=== PATIENT | male | born 1940 | race Caucasian/White ===

== ENCOUNTER → 2016-07-04 | Outpatient (CLI) | payer MEDICARE, BC | LOC: LAB 08:45 | DX: I10 Essential (primary) hypertension (principal); Z12.5 Encounter for screening for malignant neoplasm of prostate; E78.2 Mixed hyperlipidemia ==

== ENCOUNTER → 2017-02-08 | Outpatient (CLI) | payer MEDICARE, BC ==
[~2017-02-08] VITALS: Ht 170.2 cm; Wt 91.4 kg
[~2017-02-08] MED LIST: LOSARTAN POTASS1 TA2 PO; OMEPRAZOLE40 MG PO
[2017-02-08 10:50] VITALS: BP 151/75
== END ==
LOC: AMSURD 10:45
DX: R00.1 Bradycardia, unspecified (principal)

== ENCOUNTER → 2017-02-13 | Outpatient (CLI) | payer MEDICARE, BC ==
[2017-02-08 10:50] VITALS: BP 151/75
== END ==
LOC: VAS 17:26
DX: Z02.89 Encounter for other administrative examinations (principal)

== ENCOUNTER → 2017-02-28 | Outpatient (CLI) | payer MEDICARE, BC ==
[2017-02-08 10:50] VITALS: BP 151/75
[2017-02-28 14:13] LABS: BUN/CREATININE RATIO 20.3 (6.0-26.0); CALCIUM 9.7 mg/dL (8.4-10.2); POTASSIUM 4.4 mmol/L (3.6-5.0); TOTAL BILIRUBIN 0.6 mg/dL (0.2-1.3); TOTAL PROTEIN 6.9 g/dL (6.3-8.2)
[2017-02-28 14:25] LABS: BASO # 0.1 (0.02-0.10); EOS # 0.2 (0.04-0.40); EOS % 2.9 % (0.0-4.0); HEMATOCRIT 46.1 % (42.0-52.0); HEMOGLOBIN 15.9 g/dL (13.5-18.0); LYMPH# 1.6 (1.50-4.00); MEAN CELL VOLUME 84 fl (78-100); MEAN CORPUSCULAR HEMOGLOBIN 29 pg (27-31); MEAN CORPUSCULAR HGB CONC 35 g/dL (33-37); MEAN PLATELET VOLUME 11.1 fl (7.4-10.4); MONO # 0.9 (0.20-0.80); NEU # 4.6 (1.40-6.50); PLATELET COUNT 224 K/mm3 (130-400); RED BLOOD COUNT 5.49 M/mm3 (4.20-5.60); WHITE BLOOD COUNT 7.3 K/mm3 (4.8-10.8)
[2017-02-28 15:31] LABS: ERYTHROCYTE SEDIMENTATION RATE 4 mm/hr (0-20)
== END ==
LOC: LAB 13:40
PROVIDERS: Internal Medicine
DX: R00.1 Bradycardia, unspecified (principal); R06.00 Dyspnea, unspecified

== ENCOUNTER → 2017-03-03 | Outpatient (CLI) | payer MEDICARE, BC ==
[2017-02-08 10:50] VITALS: BP 151/75
== END ==
LOC: PT 02-17 11:36 → CARDREHAB 09:01
DX: R00.1 Bradycardia, unspecified (principal); R06.02 Shortness of breath; R00.0 Tachycardia, unspecified
CPT/HCPCS: A9500

== ENCOUNTER 2017-08-30 08:30 | Outpatient (RCR) | payer MEDICARE, BC ==
[2017-02-08 10:50] VITALS: BP 151/75
== END 2017-08-30 09:00 | disposition home or self-care (01) ==
LOC: PT 08:30
DX: M50.323 Other cervical disc degeneration at C6-C7 level (principal)
CPT/HCPCS: G8978-GP; G8979-GP

== ENCOUNTER → 2017-09-18 | Outpatient (CLI) | payer MEDICARE, BC ==
[2017-02-08 10:50] VITALS: BP 151/75
[2017-09-18 09:29] LABS: EOS # 0.1 (0.04-0.40); EOS % 2.2 % (0.0-4.0); HEMOGLOBIN 15.8 g/dL (13.5-18.0); MEAN CELL VOLUME 84 fl (78-100); MEAN CORPUSCULAR HEMOGLOBIN 29 pg (27-31); MEAN CORPUSCULAR HGB CONC 34 g/dL (33-37); MEAN PLATELET VOLUME 10.4 fl (7.4-10.4); MONO # 0.7 (0.20-0.80); PLATELET COUNT 215 K/mm3 (130-400); RED CELL DISTRIBUTION WIDTH 13.7 % (11.5-14.5); WHITE BLOOD COUNT 5.9 K/mm3 (4.8-10.8)
[2017-09-18 09:46] LABS: ALBUMIN 3.9 g/dL (3.5-5.0); BUN/CREATININE RATIO 22.7 (6.0-26.0); CALCIUM 9.3 mg/dL (8.4-10.2); POTASSIUM 4.2 mmol/L (3.6-5.0); TOTAL BILIRUBIN 0.5 mg/dL (0.2-1.3); TOTAL PROTEIN 6.9 g/dL (6.3-8.2)
[2017-09-18 10:58] LABS: ERYTHROCYTE SEDIMENTATION RATE 1 mm/hr (0-20)
== END ==
LOC: LAB 09:14
PROVIDERS: Internal Medicine
DX: R00.1 Bradycardia, unspecified (principal); R06.00 Dyspnea, unspecified

== ENCOUNTER → 2017-09-20 | Outpatient (CLI) | payer MEDICARE, BC ==
[2017-02-08 10:50] VITALS: BP 151/75
== END | disposition home or self-care (01) ==
LOC: CARDREHAB 11:46
DX: G47.33 Obstructive sleep apnea (adult) (pediatric) (principal); R06.83 Snoring; R09.02 Hypoxemia; Z68.32 Body mass index [BMI] 32.0-32.9, adult
CPT/HCPCS: G0399

== ENCOUNTER → 2018-01-08 | Outpatient (CLI) | payer MEDICARE, BC ==
[2017-02-08 10:50] VITALS: BP 151/75
[2018-01-08 10:17] LABS: PROTHROMBIN TIME 14.3 SECONDS (9.0-12.0)
== END ==
LOC: LAB 08:25
PROVIDERS: Internal Medicine Clinical Cardiac Electrophysiology
DX: Z79.01 Long term (current) use of anticoagulants (principal)

== ENCOUNTER → 2018-01-11 | Outpatient (CLI) | payer MEDICARE, BC ==
[2017-02-08 10:50] VITALS: BP 151/75
[2018-01-11 10:11] LABS: PROTHROMBIN TIME 23.4 SECONDS (9.0-12.0)
== END ==
LOC: LAB 09:20
PROVIDERS: Internal Medicine Clinical Cardiac Electrophysiology
DX: Z79.01 Long term (current) use of anticoagulants (principal)

== ENCOUNTER → 2018-01-18 | Outpatient (CLI) | payer MEDICARE, BC ==
[~2018-01-18] VITALS: Ht 167.6 cm; Wt 90.9 kg
[~2018-01-18] MED LIST changes: +D3-5000 90 MG-51 TAB PO; +JANTOVEN5 MG PO; +NATURE'S BLEND50 MCG PO
[2018-01-18 10:43] LABS: EOS # 0.2 (0.04-0.40); EOS % 1.4 % (0.0-4.0); HEMATOCRIT 47.7 % (42.0-52.0); HEMOGLOBIN 16.4 g/dL (13.5-18.0); LYMPH# 1.9 (1.50-4.00); MEAN CELL VOLUME 84 fl (78-100); MEAN CORPUSCULAR HEMOGLOBIN 29 pg (27-31); MEAN CORPUSCULAR HGB CONC 34 g/dL (33-37); MEAN PLATELET VOLUME 10.2 fl (7.4-10.4); MONO # 1.3 (0.20-0.80); NEU # 7.8 (1.40-6.50); PLATELET COUNT 233 K/mm3 (130-400); RED BLOOD COUNT 5.71 M/mm3 (4.20-5.60); WHITE BLOOD COUNT 11.4 K/mm3 (4.8-10.8)
[2018-01-18 10:47] LABS: PROTHROMBIN TIME 26.4 SECONDS (9.0-12.0)
[2018-01-18 10:52] VITALS: BP 144/87
[2018-01-18 10:52] LABS: ALBUMIN 3.9 g/dL (3.5-5.0); CALCIUM 9.5 mg/dL (8.4-10.2); POTASSIUM 3.9 mmol/L (3.6-5.0); TOTAL BILIRUBIN 0.6 mg/dL (0.2-1.3); TOTAL PROTEIN 6.7 g/dL (6.3-8.2)
== END ==
LOC: AMSURD 10:15
PROVIDERS: Internal Medicine
DX: Z01.818 Encounter for other preprocedural examination (principal); N40.0 Benign prostatic hyperplasia without lower urinary tract symptoms; Z95.0 Presence of cardiac pacemaker

== ENCOUNTER → 2018-01-25 | Outpatient (CLI) | payer MEDICARE, BC ==
[2018-01-18 10:52] VITALS: BP 144/87
[2018-01-25 10:56] LABS: PROTHROMBIN TIME 19.6 SECONDS (9.0-12.0)
== END ==
LOC: LAB 09:15
PROVIDERS: Internal Medicine Clinical Cardiac Electrophysiology
DX: Z79.01 Long term (current) use of anticoagulants (principal)

== ENCOUNTER → 2018-02-01 | Outpatient (CLI) | payer MEDICARE, BC ==
[2018-01-18 10:52] VITALS: BP 144/87
[2018-02-01 09:30] LABS: PROTHROMBIN TIME 24.3 SECONDS (9.0-12.0)
== END ==
LOC: LAB 08:00
PROVIDERS: Internal Medicine Clinical Cardiac Electrophysiology
DX: Z79.01 Long term (current) use of anticoagulants (principal)

== ENCOUNTER → 2018-04-02 | Outpatient (CLI) | payer MEDICARE, BC ==
[2018-01-18 10:52] VITALS: BP 144/87
[2018-04-02 16:02] LABS: BASO # 0.1 (0.02-0.10); EOS # 0.4 (0.04-0.40); HEMATOCRIT 44.6 % (42.0-52.0); HEMOGLOBIN 15.1 g/dL (13.5-18.0); LYMPH# 1.4 (1.50-4.00); MEAN CELL VOLUME 84 fl (78-100); MEAN CORPUSCULAR HEMOGLOBIN 28 pg (27-31); MEAN CORPUSCULAR HGB CONC 34 g/dL (33-37); MEAN PLATELET VOLUME 10.8 fl (7.4-10.4); MONO # 0.9 (0.20-0.80); NEU # 5.2 (1.40-6.50); PLATELET COUNT 255 K/mm3 (130-400); RED BLOOD COUNT 5.31 M/mm3 (4.20-5.60); RED CELL DISTRIBUTION WIDTH 13.9 % (11.5-14.5)
[2018-04-02 16:13] LABS: ALBUMIN 3.9 g/dL (3.5-5.0); CALCIUM 9.2 mg/dL (8.4-10.2); POTASSIUM 3.8 mmol/L (3.6-5.0); TOTAL BILIRUBIN 0.4 mg/dL (0.2-1.3); TOTAL PROTEIN 6.6 g/dL (6.3-8.2)
[2018-04-02 16:24] LABS: EOS % 5.2 % (0.0-4.0)
[2018-04-02 20:02] LABS: URINE COLOR YELLOW
[2018-04-02 20:03] LABS: ERYTHROCYTE SEDIMENTATION RATE 5 mm/hr (0-20); URINE APPEARANCE CLOUDY; URINE BILIRUBIN NEGATIVE (NEGATIVE); URINE BLOOD 50 ery/uL (NEGATIVE); URINE GLUCOSE NEGATIVE (NEGATIVE); URINE KETONE NEGATIVE (NEGATIVE); URINE LEUKOCYTE ESTERASE 2+ (NEGATIVE); URINE NITRATE NEGATIVE (NEGATIVE); URINE PROTEIN(semi-quant) TRACE mg/dL (NEGATIVE); URINE UROBILINOGEN NORMAL (NORMAL); URINE WBC >50 /hpf (0-3)
[2018-04-03 23:14] LABS: C-REACTIVE PROTEIN XXX
== END ==
LOC: LAB 14:33
PROVIDERS: Internal Medicine
DX: I10 Essential (primary) hypertension (principal); I44.30 Unspecified atrioventricular block; N39.0 Urinary tract infection, site not specified; R20.2 Paresthesia of skin; G47.33 Obstructive sleep apnea (adult) (pediatric)

== ENCOUNTER → 2018-05-31 | Outpatient (CLI) | payer MEDICARE, BC ==
[2018-01-18 10:52] VITALS: BP 144/87
== END ==
LOC: RAD 17:26
DX: M47.896 Other spondylosis, lumbar region (principal); R20.2 Paresthesia of skin

== ENCOUNTER → 2018-07-12 | Outpatient (CLI) | payer MEDICARE, BC ==
[2018-01-18 10:52] VITALS: BP 144/87
[~2018-07-12] MED LIST changes: +CIPRO 500MG TA500 MG PO; +ZOLPIDEM TART10 MG PO
[2018-07-12 09:47] LABS: PROTHROMBIN TIME 17.4 SECONDS (9.0-12.0)
== END ==
LOC: LAB 09:15
PROVIDERS: Internal Medicine Cardiovascular Disease
DX: I48.0 Paroxysmal atrial fibrillation (principal)

== ENCOUNTER 2018-07-13 02:45 | Emergency (ER) | payer MEDICARE, BC ==
[~2018-07-13] VITALS: Ht 167.6 cm; Wt 90.9 kg
[~2018-07-13 02:45] MED LIST changes: -CIPRO 500MG TA500 MG PO; -ZOLPIDEM TART10 MG PO
[2018-07-13] MEDS ORDERED: OMEPRAZOLE40 MG PO (03:31)
[2018-07-13] MEDS ORDERED: ZOLPIDEM TART10 MG PO (03:31)
[2018-07-13 03:50] LABS: ALBUMIN 3.6 g/dL (3.5-5.0); CALCIUM 9.5 mg/dL (8.4-10.2); HEMATOCRIT 45.2 % (42.0-52.0); HEMOGLOBIN 15.3 g/dL (13.5-18.0); MEAN CELL VOLUME 83 fl (78-100); MEAN CORPUSCULAR HEMOGLOBIN 28 pg (27-31); MEAN CORPUSCULAR HGB CONC 34 g/dL (33-37); MEAN PLATELET VOLUME 10.9 fl (7.4-10.4); PLATELET COUNT 210 K/mm3 (130-400); POTASSIUM 3.4 mmol/L (3.6-5.0); RED BLOOD COUNT 5.48 M/mm3 (4.20-5.60); RED CELL DISTRIBUTION WIDTH 13.6 % (11.5-14.5); TOTAL BILIRUBIN 0.3 mg/dL (0.2-1.3); TOTAL PROTEIN 6.2 g/dL (6.3-8.2); WHITE BLOOD COUNT 6.2 K/mm3 (4.8-10.8)
[2018-07-13 04:00] LABS: TROPONIN-I < 0.03 ng/mL (0.00-0.06)
[2018-07-13 04:01] LABS: CKMB ISOENZYME 2.6 ng/mL (0.6-3.5)
[2018-07-13 04:09] LABS: LYMPHOCYTE 31 % (20-51); MONOCYTE 11 % (3-10); NEUTROPHILS 52 % (42-75)
[2018-07-13 04:44] LABS: D-DIMER 0.69 mg/L FEU (0.15-0.50)
[2018-07-13 04:58] LABS: URINE APPEARANCE HAZY; URINE BILIRUBIN NEGATIVE (NEGATIVE); URINE BLOOD TRACE (NEGATIVE); URINE COLOR YELLOW; URINE GLUCOSE NEGATIVE (NEGATIVE); URINE KETONE NEGATIVE (NEGATIVE); URINE LEUKOCYTE ESTERASE TRACE (NEGATIVE); URINE NITRATE NEGATIVE (NEGATIVE); URINE PROTEIN(semi-quant) TRACE mg/dL (NEGATIVE); URINE UROBILINOGEN NORMAL (NORMAL)
[2018-07-13 05:04] LABS: URINE MUCUS PRESENT (NOT PRESENT)
[2018-07-13] MEDS ORDERED: CIPRO 500MG TA500 MG PO (06:57)
[2018-07-13 07:38] VITALS: BP 135/63
== END 2018-07-13 07:39 | disposition home or self-care (01) ==
LOC: ED 02:45
PROVIDERS: Nurse Practitioner Family
DX: R00.2 Palpitations (principal); E87.6 Hypokalemia; N39.0 Urinary tract infection, site not specified; I10 Essential (primary) hypertension; E78.5 Hyperlipidemia, unspecified; I49.5 Sick sinus syndrome; Z95.0 Presence of cardiac pacemaker; Z90.79 Acquired absence of other genital organ(s); Z87.891 Personal history of nicotine dependence; Z79.01 Long term (current) use of anticoagulants
CPT/HCPCS: J2405; J7030; Q9967

== ENCOUNTER → 2018-07-16 | Outpatient (CLI) | payer MEDICARE, BC ==
[2018-07-13 07:38] VITALS: BP 135/63
[~2018-07-16] MED LIST changes: +CIPRO 500MG TA500 MG PO; +ZOLPIDEM TART10 MG PO
[2018-07-16 08:22] LABS: PROTHROMBIN TIME 23.1 SECONDS (9.0-12.0)
== END ==
LOC: LAB 07:58
PROVIDERS: Internal Medicine Cardiovascular Disease
DX: I48.0 Paroxysmal atrial fibrillation (principal)

== ENCOUNTER → 2018-07-23 | Outpatient (CLI) | payer MEDICARE, BC ==
[2018-07-13 07:38] VITALS: BP 135/63
[2018-07-23 08:27] LABS: PROTHROMBIN TIME 29.8 SECONDS (9.0-12.0)
== END ==
LOC: LAB 08:03
PROVIDERS: Internal Medicine
DX: I48.0 Paroxysmal atrial fibrillation (principal)

== ENCOUNTER → 2018-07-30 | Outpatient (CLI) | payer MEDICARE, BC ==
[2018-07-13 07:38] VITALS: BP 135/63
[2018-07-30 10:06] LABS: PROTHROMBIN TIME 50.4 SECONDS (9.0-12.0)
== END ==
LOC: LAB 08:28
PROVIDERS: Internal Medicine
DX: I48.0 Paroxysmal atrial fibrillation (principal)

== ENCOUNTER → 2018-08-01 | Outpatient (CLI) | payer MEDICARE, BC ==
[2018-07-13 07:38] VITALS: BP 135/63
[2018-08-01 08:35] LABS: PROTHROMBIN TIME 30.9 SECONDS (9.0-12.0)
== END ==
LOC: LAB 08:04
PROVIDERS: Internal Medicine
DX: I48.0 Paroxysmal atrial fibrillation (principal)

== ENCOUNTER → 2018-08-06 | Outpatient (CLI) | payer MEDICARE, BC ==
[2018-07-13 07:38] VITALS: BP 135/63
[2018-08-06 08:59] LABS: PROTHROMBIN TIME 14.3 SECONDS (9.0-12.0)
== END ==
LOC: LAB 08:20
PROVIDERS: Internal Medicine
DX: I48.0 Paroxysmal atrial fibrillation (principal)

== ENCOUNTER → 2018-08-09 | Outpatient (CLI) | payer MEDICARE, BC ==
[2018-07-13 07:38] VITALS: BP 135/63
== END ==
LOC: LAB 13:43
PROVIDERS: Internal Medicine
DX: I48.0 Paroxysmal atrial fibrillation (principal)

== ENCOUNTER → 2018-08-13 | Outpatient (CLI) | payer MEDICARE, BC ==
[2018-08-13 08:24] LABS: PROTHROMBIN TIME 17.2 SECONDS (9.0-12.0)
== END ==
LOC: LAB 08:02
PROVIDERS: Internal Medicine
DX: I48.0 Paroxysmal atrial fibrillation (principal)

== ENCOUNTER → 2018-08-20 | Outpatient (CLI) | payer MEDICARE, BC ==
[2018-08-20 08:20] LABS: PROTHROMBIN TIME 19.5 SECONDS (9.0-12.0)
== END ==
LOC: LAB 07:59
PROVIDERS: Internal Medicine
DX: I48.0 Paroxysmal atrial fibrillation (principal)

== ENCOUNTER → 2018-08-28 | Outpatient (CLI) | payer MEDICARE, BC ==
[2018-08-28 08:23] LABS: PROTHROMBIN TIME 22.3 SECONDS (9.0-12.0)
== END ==
LOC: LAB 08:00
PROVIDERS: Internal Medicine
DX: I48.0 Paroxysmal atrial fibrillation (principal)

== ENCOUNTER → 2018-09-18 | Outpatient (CLI) | payer MEDICARE, BC ==
[2018-09-18 08:27] LABS: PROTHROMBIN TIME 15.9 SECONDS (9.0-12.0)
== END ==
LOC: LAB 07:57
PROVIDERS: Internal Medicine
DX: I48.0 Paroxysmal atrial fibrillation (principal)

== ENCOUNTER → 2018-09-28 | Outpatient (CLI) | payer MEDICARE, BC ==
[2018-09-28 10:48] LABS: PROTHROMBIN TIME 16.4 SECONDS (9.0-12.0)
== END ==
LOC: LAB 09:59
PROVIDERS: Internal Medicine
DX: I48.0 Paroxysmal atrial fibrillation (principal)

== ENCOUNTER → 2018-10-05 | Outpatient (CLI) | payer MEDICARE, BC ==
[2018-10-05 11:17] LABS: PROTHROMBIN TIME 21.7 SECONDS (9.0-12.0)
== END ==
LOC: LAB 10:55
PROVIDERS: Internal Medicine
DX: I48.0 Paroxysmal atrial fibrillation (principal)

== ENCOUNTER → 2018-10-08 | Outpatient (CLI) | payer MEDICARE, BC | LOC: RAD 14:18 | DX: R60.0 Localized edema (principal) ==

== ENCOUNTER → 2018-10-15 | Outpatient (CLI) | payer MEDICARE, BC ==
[2018-10-15 08:50] LABS: PROTHROMBIN TIME 23.3 SECONDS (9.0-12.0)
== END ==
LOC: LAB 08:26
PROVIDERS: Internal Medicine
DX: I48.0 Paroxysmal atrial fibrillation (principal)

== ENCOUNTER → 2018-10-29 | Outpatient (CLI) | payer MEDICARE, BC ==
[2018-10-29 08:27] LABS: PROTHROMBIN TIME 22.3 SECONDS (9.0-12.0)
== END ==
LOC: LAB 07:58
PROVIDERS: Internal Medicine
DX: I48.0 Paroxysmal atrial fibrillation (principal)

== ENCOUNTER → 2018-11-12 | Outpatient (CLI) | payer MEDICARE, BC ==
[2018-11-12 08:27] LABS: PROTHROMBIN TIME 23.4 SECONDS (9.0-12.0)
== END ==
LOC: LAB 07:56
PROVIDERS: Internal Medicine
DX: I48.0 Paroxysmal atrial fibrillation (principal)

== ENCOUNTER → 2018-12-04 | Outpatient (CLI) | payer MEDICARE, BC ==
[2018-12-04 09:17] LABS: PROTHROMBIN TIME 21.1 SECONDS (9.0-12.0)
== END ==
LOC: LAB 07:55
PROVIDERS: Internal Medicine
DX: I48.0 Paroxysmal atrial fibrillation (principal)

== ENCOUNTER → 2019-01-08 | Outpatient (CLI) | payer MEDICARE, BC ==
[2019-01-08 15:17] LABS: EOS # 0.3 (0.04-0.40); EOS % 2.8 % (0.0-4.0); HEMATOCRIT 46.3 % (42.0-52.0); HEMOGLOBIN 15.6 g/dL (13.5-18.0); MEAN CELL VOLUME 83 fl (78-100); MEAN CORPUSCULAR HEMOGLOBIN 28 pg (27-31); MEAN CORPUSCULAR HGB CONC 34 g/dL (33-37); MEAN PLATELET VOLUME 9.3 fl (7.4-10.4); NEU # 6.9 (1.40-6.50); PLATELET COUNT 283 K/mm3 (130-400); RED BLOOD COUNT 5.61 M/mm3 (4.20-5.60); RED CELL DISTRIBUTION WIDTH 13.7 % (11.5-14.5); WHITE BLOOD COUNT 10.2 K/mm3 (4.8-10.8)
[2019-01-08 15:33] LABS: ALBUMIN 3.9 g/dL (3.4-4.8); POTASSIUM 3.7 mmol/L (3.5-5.1)
[2019-01-08 15:34] LABS: CALCIUM 9.9 mg/dL (8.3-10.5)
[2019-01-08 15:35] LABS: TOTAL PROTEIN 7.2 g/dL (6.2-8.1)
[2019-01-08 15:37] LABS: TOTAL BILIRUBIN 0.3 mg/dL (0.2-1.2)
== END ==
LOC: RAD 15:04 → LAB 15:04
PROVIDERS: Internal Medicine
DX: R50.9 Fever, unspecified (principal); R05 Cough; R60.0 Localized edema

== ENCOUNTER → 2019-02-07 | Outpatient (CLI) | payer MEDICARE, BC ==
[2019-02-07 14:46] LABS: PROTHROMBIN TIME 25.7 SECONDS (9.0-12.0)
== END ==
LOC: LAB 14:08
PROVIDERS: Internal Medicine
DX: I48.0 Paroxysmal atrial fibrillation (principal)

== ENCOUNTER → 2019-02-25 | Outpatient (CLI) | payer MEDICARE, BC ==
[2019-02-25 08:22] LABS: PROTHROMBIN TIME 22.9 SECONDS (9.0-12.0)
== END ==
LOC: LAB 07:57
PROVIDERS: Internal Medicine
DX: I48.0 Paroxysmal atrial fibrillation (principal)

== ENCOUNTER → 2019-04-15 | Outpatient (CLI) | payer MEDICARE, BC ==
[2019-04-15 14:23] LABS: PROTHROMBIN TIME 24.2 SECONDS (9.0-12.0)
== END ==
LOC: LAB 13:56
PROVIDERS: Internal Medicine
DX: I48.0 Paroxysmal atrial fibrillation (principal)

== ENCOUNTER 2019-05-20 09:01 | Emergency (ER) | payer MEDICARE, BC ==
[2019-05-20] MEDS ORDERED: WARFARIN SOD5 MG PO (09:43)
[2019-05-20] MEDS ORDERED: HCTZ 25MG25 MG PO (09:43)
[2019-05-20] MEDS ORDERED: CYANOCOBAL1000 MCG/1 SQ (09:43)
[2019-05-20] MEDS ORDERED: LOSARTAN POTAS100 MG PO (09:43)
[2019-05-20] MEDS ORDERED: CARTIA XT240 MG PO (09:44)
[2019-05-20 10:26] LABS: EOS # 0.2 (0.04-0.40); EOS % 2.9 % (0.0-4.0); HEMATOCRIT 45.7 % (42.0-52.0); HEMOGLOBIN 15.3 g/dL (13.5-18.0); LYMPH# 1.2 (1.50-4.00); MEAN CELL VOLUME 85 fl (78-100); MEAN CORPUSCULAR HEMOGLOBIN 28 pg (27-31); MEAN CORPUSCULAR HGB CONC 34 g/dL (33-37); MEAN PLATELET VOLUME 10.8 fl (7.4-10.4); MONO # 0.6 (0.20-0.80); NEU # 3.5 (1.40-6.50); PLATELET COUNT 228 K/mm3 (130-400); RED BLOOD COUNT 5.39 M/mm3 (4.20-5.60); RED CELL DISTRIBUTION WIDTH 13.5 % (11.5-14.5); WHITE BLOOD COUNT 5.4 K/mm3 (4.8-10.8)
[2019-05-20 10:29] LABS: ALBUMIN 4.2 g/dL (3.4-4.8); POTASSIUM 3.9 mmol/L (3.5-5.1)
[2019-05-20 10:30] LABS: CALCIUM 9.4 mg/dL (8.3-10.5)
[2019-05-20 10:31] LABS: TOTAL PROTEIN 6.9 g/dL (6.2-8.1)
[2019-05-20 10:33] LABS: TOTAL BILIRUBIN 0.5 mg/dL (0.2-1.2)
[2019-05-20 10:41] LABS: PROTHROMBIN TIME 26.2 SECONDS (9.0-12.0)
[2019-05-20 11:18] VITALS: BP 129/63
== END 2019-05-20 11:18 | disposition home or self-care (01) ==
LOC: ED 09:01
PROVIDERS: Nurse Practitioner Primary Care
DX: R07.89 Other chest pain (principal); I48.91 Unspecified atrial fibrillation; K21.9 Gastro-esophageal reflux disease without esophagitis; I10 Essential (primary) hypertension; G47.33 Obstructive sleep apnea (adult) (pediatric); Z79.01 Long term (current) use of anticoagulants; Z95.0 Presence of cardiac pacemaker

== ENCOUNTER → 2019-09-23 | Outpatient (CLI) | payer MEDICARE, BC ==
[~2019-09-23] MED LIST changes: +CARTIA XT240 MG PO; +CYANOCOBAL1000 MCG/1 SQ; +HCTZ 25MG25 MG PO; +LOSARTAN POTAS100 MG PO; +WARFARIN SOD5 MG PO
[2019-09-23 09:18] LABS: PROTHROMBIN TIME 13.2 SECONDS (9.0-12.0)
== END ==
LOC: LAB 08:28
PROVIDERS: Internal Medicine
DX: I48.0 Paroxysmal atrial fibrillation (principal); Z79.01 Long term (current) use of anticoagulants

== ENCOUNTER → 2019-09-30 | Outpatient (CLI) | payer MEDICARE, BC ==
[2019-09-30 08:59] LABS: PROTHROMBIN TIME 15.8 SECONDS (9.0-12.0)
== END ==
LOC: LAB 08:00
PROVIDERS: Internal Medicine
DX: I48.0 Paroxysmal atrial fibrillation (principal); Z79.01 Long term (current) use of anticoagulants

== ENCOUNTER → 2019-10-07 | Outpatient (CLI) | payer MEDICARE, BC ==
[2019-10-07 09:27] LABS: PROTHROMBIN TIME 17.5 SECONDS (9.0-12.0)
== END ==
LOC: LAB 07:56
PROVIDERS: Internal Medicine
DX: I48.0 Paroxysmal atrial fibrillation (principal); Z79.01 Long term (current) use of anticoagulants

== ENCOUNTER → 2019-10-14 | Outpatient (CLI) | payer MEDICARE, BC ==
[2019-10-14 10:07] LABS: PROTHROMBIN TIME 23.1 SECONDS (9.0-12.0)
== END ==
LOC: LAB 07:59
PROVIDERS: Internal Medicine
DX: I48.0 Paroxysmal atrial fibrillation (principal); Z79.01 Long term (current) use of anticoagulants

== ENCOUNTER → 2019-10-21 | Outpatient (CLI) | payer MEDICARE, BC ==
[2019-10-21 10:06] LABS: PROTHROMBIN TIME 24.1 SECONDS (9.0-12.0)
== END ==
LOC: LAB 09:01
PROVIDERS: Internal Medicine
DX: I48.0 Paroxysmal atrial fibrillation (principal); Z79.01 Long term (current) use of anticoagulants

== ENCOUNTER → 2019-11-18 | Outpatient (CLI) | payer MEDICARE, BC | LOC: LAB 07:33 | PROVIDERS: Internal Medicine | DX: I48.0 Paroxysmal atrial fibrillation (principal); Z79.01 Long term (current) use of anticoagulants ==

== ENCOUNTER → 2019-11-27 | Outpatient (CLI) | payer MEDICARE, BC | LOC: LAB 07:12 | PROVIDERS: Internal Medicine | DX: I48.0 Paroxysmal atrial fibrillation (principal); Z79.01 Long term (current) use of anticoagulants ==

== ENCOUNTER → 2019-12-04 | Outpatient (CLI) | payer MEDICARE, BC ==
[2019-12-04 08:37] LABS: PROTHROMBIN TIME 28.4 SECONDS (9.0-12.0)
== END ==
LOC: LAB 08:03
PROVIDERS: Internal Medicine
DX: I48.0 Paroxysmal atrial fibrillation (principal); Z79.01 Long term (current) use of anticoagulants

== ENCOUNTER → 2019-12-20 | Outpatient (CLI) | payer MEDICARE, BC ==
[2019-12-20 09:22] LABS: HEMATOCRIT 45.6 % (42.0-52.0); HEMOGLOBIN 15.3 g/dL (13.5-18.0); MEAN CELL VOLUME 85 fl (78-100); MEAN CORPUSCULAR HEMOGLOBIN 29 pg (27-31); MEAN CORPUSCULAR HGB CONC 34 g/dL (33-37); MEAN PLATELET VOLUME 9.6 fl (7.4-10.4); PLATELET COUNT 209 K/mm3 (130-400); RED BLOOD COUNT 5.36 M/mm3 (4.20-5.60); RED CELL DISTRIBUTION WIDTH 13.6 % (11.5-14.5); WHITE BLOOD COUNT 5.9 K/mm3 (4.8-10.8)
[2019-12-20 09:32] LABS: POTASSIUM 4.2 mmol/L (3.5-5.1)
[2019-12-20 09:33] LABS: ALBUMIN 4.2 g/dL (3.4-4.8)
[2019-12-20 09:34] LABS: CALCIUM 9.7 mg/dL (8.3-10.5)
[2019-12-20 09:35] LABS: TOTAL PROTEIN 6.9 g/dL (6.2-8.1)
[2019-12-20 09:37] LABS: TOTAL BILIRUBIN 0.3 mg/dL (0.2-1.2)
[2019-12-20 09:42] LABS: LYMPHOCYTE 15 % (20-51); MONOCYTE 22 % (3-10); NEUTROPHILS 61 % (42-75)
[2019-12-20 10:01] LABS: PROTHROMBIN TIME 30.4 SECONDS (9.0-12.0)
[2019-12-20 11:27] LABS: ERYTHROCYTE SEDIMENTATION RATE 7 mm/hr (0-20)
[2019-12-20 21:49] LABS: TESTOSTERONE 514 ng/dL (221-716)
== END ==
LOC: LAB 09:06
PROVIDERS: Internal Medicine
DX: Z01.818 Encounter for other preprocedural examination (principal); Z12.5 Encounter for screening for malignant neoplasm of prostate; Z12.11 Encounter for screening for malignant neoplasm of colon; N40.0 Benign prostatic hyperplasia without lower urinary tract symptoms; I10 Essential (primary) hypertension; I48.20 Chronic atrial fibrillation, unspecified; G47.33 Obstructive sleep apnea (adult) (pediatric); I44.1 Atrioventricular block, second degree; E78.5 Hyperlipidemia, unspecified; N52.03 Combined arterial insufficiency and corporo-venous occlusive erectile dysfunction; R20.2 Paresthesia of skin

== ENCOUNTER → 2019-12-27 | Outpatient (CLI) | payer MEDICARE, BC ==
[2019-12-27 08:24] LABS: PROTHROMBIN TIME 22.7 SECONDS (9.0-12.0)
== END ==
LOC: LAB 07:44
PROVIDERS: Internal Medicine
DX: Z01.818 Encounter for other preprocedural examination (principal); I48.91 Unspecified atrial fibrillation; N40.0 Benign prostatic hyperplasia without lower urinary tract symptoms

== ENCOUNTER → 2020-01-14 | Outpatient (CLI) | payer MEDICARE, BC ==
[2020-01-14 16:46] LABS: PROTHROMBIN TIME 38.8 SECONDS (9.0-12.0)
== END ==
LOC: LAB 16:10
PROVIDERS: Internal Medicine
DX: I48.0 Paroxysmal atrial fibrillation (principal); Z79.01 Long term (current) use of anticoagulants

== ENCOUNTER → 2020-01-23 | Outpatient (CLI) | payer MEDICARE, BC ==
[2020-01-23 08:43] LABS: PROTHROMBIN TIME 26.1 SECONDS (9.0-12.0)
== END ==
LOC: LAB 07:51
PROVIDERS: Internal Medicine
DX: I48.0 Paroxysmal atrial fibrillation (principal); Z79.01 Long term (current) use of anticoagulants

== ENCOUNTER → 2020-01-30 | Outpatient (CLI) | payer MEDICARE, BC ==
[2020-01-30 08:33] LABS: PROTHROMBIN TIME 26.5 SECONDS (9.0-12.0)
== END ==
LOC: LAB 07:48
PROVIDERS: Internal Medicine
DX: I48.0 Paroxysmal atrial fibrillation (principal); Z79.01 Long term (current) use of anticoagulants

== ENCOUNTER → 2020-02-06 | Outpatient (CLI) | payer MEDICARE, BC ==
[2020-02-06 07:40] LABS: PROTHROMBIN TIME 33.1 SECONDS (9.0-12.0)
== END ==
LOC: LAB 07:08
PROVIDERS: Internal Medicine
DX: Z01.818 Encounter for other preprocedural examination (principal); I48.91 Unspecified atrial fibrillation; I48.92 Unspecified atrial flutter

== ENCOUNTER → 2020-02-13 | Outpatient (CLI) | payer MEDICARE, BC ==
[2020-02-13 08:05] LABS: PROTHROMBIN TIME 28.9 SECONDS (9.0-12.0)
== END ==
LOC: LAB 07:21
PROVIDERS: Internal Medicine
DX: Z01.818 Encounter for other preprocedural examination (principal); I48.91 Unspecified atrial fibrillation; I48.92 Unspecified atrial flutter; N40.0 Benign prostatic hyperplasia without lower urinary tract symptoms

== ENCOUNTER → 2020-02-20 | Outpatient (CLI) | payer MEDICARE, BC | LOC: LAB 07:19 | PROVIDERS: Internal Medicine | DX: Z01.818 Encounter for other preprocedural examination (principal); N40.0 Benign prostatic hyperplasia without lower urinary tract symptoms; I48.91 Unspecified atrial fibrillation; I48.92 Unspecified atrial flutter ==

== ENCOUNTER → 2020-03-05 | Outpatient (CLI) | payer MEDICARE, BC ==
[2020-03-05 08:05] LABS: PROTHROMBIN TIME 40.9 SECONDS (9.0-12.0)
== END ==
LOC: LAB 07:16
PROVIDERS: Internal Medicine
DX: Z01.818 Encounter for other preprocedural examination (principal); N40.0 Benign prostatic hyperplasia without lower urinary tract symptoms; I48.91 Unspecified atrial fibrillation; I48.92 Unspecified atrial flutter

== ENCOUNTER → 2020-03-19 | Outpatient (CLI) | payer MEDICARE, BC ==
[2020-03-19 08:25] LABS: PROTHROMBIN TIME 21.2 SECONDS (9.0-12.0)
== END ==
LOC: LAB 07:11
PROVIDERS: Internal Medicine
DX: Z01.818 Encounter for other preprocedural examination (principal); N40.0 Benign prostatic hyperplasia without lower urinary tract symptoms; I48.20 Chronic atrial fibrillation, unspecified

== ENCOUNTER → 2020-04-13 | Outpatient (CLI) | payer MEDICARE, BC ==
[2020-04-13 08:48] LABS: PROTHROMBIN TIME 17.8 SECONDS (9.0-12.0)
== END ==
LOC: LAB 07:17
PROVIDERS: Internal Medicine
DX: Z01.818 Encounter for other preprocedural examination (principal); N40.0 Benign prostatic hyperplasia without lower urinary tract symptoms; I48.91 Unspecified atrial fibrillation; I48.92 Unspecified atrial flutter

== ENCOUNTER → 2020-05-05 | Outpatient (CLI) | payer MEDICARE, BC ==
[2020-05-05 07:55] LABS: PROTHROMBIN TIME 22.4 SECONDS (9.0-12.0)
== END ==
LOC: LAB 07:18
PROVIDERS: Internal Medicine
DX: Z01.818 Encounter for other preprocedural examination (principal); N40.0 Benign prostatic hyperplasia without lower urinary tract symptoms; I48.91 Unspecified atrial fibrillation; I48.92 Unspecified atrial flutter

== ENCOUNTER → 2020-06-01 | Outpatient (CLI) | payer MEDICARE, BC ==
[2020-06-01 08:49] LABS: PROTHROMBIN TIME 26.4 SECONDS (9.0-12.0)
== END ==
LOC: LAB 07:09
PROVIDERS: Internal Medicine
DX: Z01.818 Encounter for other preprocedural examination (principal); N40.0 Benign prostatic hyperplasia without lower urinary tract symptoms; I48.91 Unspecified atrial fibrillation; I48.92 Unspecified atrial flutter

== ENCOUNTER → 2020-06-08 | Outpatient (CLI) | payer MEDICARE, BC | LOC: LAB 11:35 | DX: U07.1 COVID-19 (principal) ==

== ENCOUNTER → 2020-06-29 | Outpatient (CLI) | payer MEDICARE, BC ==
[2020-06-29 15:40] LABS: PROTHROMBIN TIME 20.9 SECONDS (9.0-12.0)
== END ==
LOC: LAB 15:01
PROVIDERS: Internal Medicine
DX: Z01.812 Encounter for preprocedural laboratory examination (principal); I48.20 Chronic atrial fibrillation, unspecified; N40.0 Benign prostatic hyperplasia without lower urinary tract symptoms

== ENCOUNTER → 2020-07-21 | Outpatient (CLI) | payer MEDICARE, BC ==
[2020-07-21 08:29] LABS: BASO # 0.1 (0.02-0.10); EOS # 0.4 (0.04-0.40); HEMATOCRIT 44.2 % (42.0-52.0); HEMOGLOBIN 14.5 g/dL (13.5-18.0); LYMPH# 1.6 (1.50-4.00); MEAN CELL VOLUME 87 fl (78-100); MEAN CORPUSCULAR HEMOGLOBIN 29 pg (27-31); MEAN CORPUSCULAR HGB CONC 33 g/dL (33-37); MEAN PLATELET VOLUME 9.8 fl (7.4-10.4); MONO # 0.9 (0.20-0.80); NEU # 4.5 (1.40-6.50); PLATELET COUNT 261 K/mm3 (130-400); RED BLOOD COUNT 5.07 M/mm3 (4.20-5.60); WHITE BLOOD COUNT 7.5 K/mm3 (4.8-10.8)
[2020-07-21 08:31] LABS: EOS % 5.9 % (0.0-4.0)
[2020-07-21 08:40] LABS: POTASSIUM 4.3 mmol/L (3.5-5.1)
[2020-07-21 08:41] LABS: CALCIUM 9.5 mg/dL (8.3-10.5)
[2020-07-21 08:43] LABS: TOTAL PROTEIN 6.9 g/dL (6.2-8.1)
[2020-07-21 08:48] LABS: PROTHROMBIN TIME 29.6 SECONDS (9.0-12.0)
[2020-07-21 08:53] LABS: TOTAL BILIRUBIN 0.5 mg/dL (0.2-1.2)
== END ==
LOC: LAB 08:02
PROVIDERS: Internal Medicine
DX: Z01.812 Encounter for preprocedural laboratory examination (principal); E78.2 Mixed hyperlipidemia; I48.91 Unspecified atrial fibrillation; N40.0 Benign prostatic hyperplasia without lower urinary tract symptoms

== ENCOUNTER → 2020-09-11 | Outpatient (CLI) | payer MEDICARE, BC ==
[2020-09-11 09:15] LABS: PROTHROMBIN TIME 29.2 SECONDS (9.0-12.0)
== END ==
LOC: LAB 07:31
PROVIDERS: Internal Medicine
DX: Z01.812 Encounter for preprocedural laboratory examination (principal); I48.20 Chronic atrial fibrillation, unspecified; N40.0 Benign prostatic hyperplasia without lower urinary tract symptoms

== ENCOUNTER → 2020-10-26 | Outpatient (CLI) | payer MEDICARE, BC ==
[2020-10-26 08:07] LABS: PROTHROMBIN TIME 25.1 SECONDS (9.0-12.0)
== END ==
LOC: LAB 07:20
PROVIDERS: Internal Medicine
DX: Z01.818 Encounter for other preprocedural examination (principal); N40.0 Benign prostatic hyperplasia without lower urinary tract symptoms; I48.20 Chronic atrial fibrillation, unspecified; E78.2 Mixed hyperlipidemia; I48.91 Unspecified atrial fibrillation

== ENCOUNTER → 2020-12-02 | Outpatient (CLI) | payer MEDICARE, BC ==
[2020-12-02 09:10] LABS: PROTHROMBIN TIME 19.9 SECONDS (9.0-12.0)
== END ==
LOC: LAB 07:19
PROVIDERS: Internal Medicine
DX: Z01.818 Encounter for other preprocedural examination (principal); I48.91 Unspecified atrial fibrillation; N40.0 Benign prostatic hyperplasia without lower urinary tract symptoms; I48.20 Chronic atrial fibrillation, unspecified

== ENCOUNTER 2020-12-10 19:24 | Emergency (ER) | payer MEDICARE, BC ==
[2020-12-10 20:11] LABS: BASO # 0.03 (0.02-0.10); EOS # 0.24 (0.04-0.40); EOS % 3.4 % (0.0-4.0); HEMATOCRIT 47.1 % (42.0-52.0); HEMOGLOBIN 15.7 g/dL (13.5-18.0); LYMPH# 1.98 (1.50-4.00); MEAN CELL VOLUME 84 fl (78-100); MEAN CORPUSCULAR HEMOGLOBIN 28 pg (27-31); MEAN CORPUSCULAR HGB CONC 33 g/dL (33-37); MEAN PLATELET VOLUME 9.8 fl (7.4-10.4); MONO # 0.83 (0.20-0.80); NEU # 3.99 (1.40-6.50); PLATELET COUNT 217 K/mm3 (130-400); RED BLOOD COUNT 5.58 M/mm3 (4.20-5.60); RED CELL DISTRIBUTION WIDTH 13.4 % (11.5-14.5); WHITE BLOOD COUNT 7.1 K/mm3 (4.8-10.8)
[2020-12-10 20:18] LABS: POTASSIUM 3.9 mmol/L (3.5-5.1)
[2020-12-10 20:19] LABS: CALCIUM 10.4 mg/dL (8.3-10.5)
[2020-12-10 20:22] LABS: TOTAL BILIRUBIN 0.8 mg/dL (0.2-1.2)
[2020-12-10 21:29] LABS: D-DIMER 0.33 mg/L FEU (0.15-0.50)
[2020-12-10 22:30] LABS: PROTHROMBIN TIME 13.2 SECONDS (9.0-12.0)
[2020-12-10 22:48] VITALS: BP 134/70
== END 2020-12-10 22:50 | disposition home or self-care (01) ==
LOC: ED 19:24
PROVIDERS: Nurse Practitioner Family
DX: I48.91 Unspecified atrial fibrillation (principal); I50.9 Heart failure, unspecified; Z79.01 Long term (current) use of anticoagulants; Z95.0 Presence of cardiac pacemaker; Z20.822 Contact with and (suspected) exposure to COVID-19
CPT/HCPCS: J7030

== ENCOUNTER → 2020-12-22 | Outpatient (CLI) | payer MEDICARE, BC ==
[2020-12-22 15:17] LABS: PROTHROMBIN TIME 24.6 SECONDS (9.0-12.0)
== END ==
LOC: LAB 14:45
PROVIDERS: Internal Medicine
DX: Z01.812 Encounter for preprocedural laboratory examination (principal); I48.20 Chronic atrial fibrillation, unspecified; N40.0 Benign prostatic hyperplasia without lower urinary tract symptoms

== ENCOUNTER → 2021-02-18 | Outpatient (CLI) | payer MEDICARE, BC ==
[2021-02-18 16:57] LABS: BASO # 0.06 K/mm3 (0.02-0.10); EOS # 0.32 K/mm3 (0.04-0.40); EOS % 4.1 % (0.0-4.0); HEMOGLOBIN 14.9 g/dL (13.5-18.0); LYMPH# 1.91 K/mm3 (1.50-4.00); MEAN CELL VOLUME 85 fl (78-100); MEAN CORPUSCULAR HEMOGLOBIN 29 pg (27-31); MEAN CORPUSCULAR HGB CONC 34 g/dL (33-37); MEAN PLATELET VOLUME 9.6 fl (7.4-10.4); MONO # 0.86 K/mm3 (0.20-0.80); NEU # 4.53 K/mm3 (1.40-6.50); PLATELET COUNT 230 K/mm3 (130-400); RED CELL DISTRIBUTION WIDTH 13.4 % (11.5-14.5); WHITE BLOOD COUNT 7.7 K/mm3 (4.8-10.8)
[2021-02-18 17:24] LABS: ALBUMIN 4.2 g/dL (3.4-4.8); POTASSIUM 3.9 mmol/L (3.5-5.1)
[2021-02-18 17:25] LABS: CALCIUM 9.9 mg/dL (8.3-10.5)
[2021-02-18 17:27] LABS: PROTHROMBIN TIME 21.2 SECONDS (9.0-12.0); TOTAL PROTEIN 6.9 g/dL (6.2-8.1)
[2021-02-18 17:29] LABS: TOTAL BILIRUBIN 0.4 mg/dL (0.2-1.2)
== END ==
LOC: LAB 16:31
PROVIDERS: Internal Medicine
DX: Z12.5 Encounter for screening for malignant neoplasm of prostate (principal); I48.91 Unspecified atrial fibrillation; K90.9 Intestinal malabsorption, unspecified; E78.2 Mixed hyperlipidemia

== ENCOUNTER → 2021-05-10 | Outpatient (CLI) | payer MEDICARE, BC ==
[2021-05-10 09:10] LABS: PROTHROMBIN TIME 22.7 SECONDS (9.0-12.0)
== END ==
LOC: LAB 07:41
PROVIDERS: Internal Medicine
DX: Z01.818 Encounter for other preprocedural examination (principal); N40.0 Benign prostatic hyperplasia without lower urinary tract symptoms; I48.91 Unspecified atrial fibrillation; I48.92 Unspecified atrial flutter

== ENCOUNTER → 2021-06-30 | Outpatient (CLI) | payer MEDICARE, BC ==
[2021-06-30 08:03] LABS: PROTHROMBIN TIME 22.2 SECONDS (9.0-12.0)
== END ==
LOC: LAB 07:21
PROVIDERS: Internal Medicine
DX: Z01.812 Encounter for preprocedural laboratory examination (principal); N40.0 Benign prostatic hyperplasia without lower urinary tract symptoms; I48.91 Unspecified atrial fibrillation; I48.92 Unspecified atrial flutter

== ENCOUNTER → 2021-07-21 | Outpatient (CLI) | payer MEDICARE, BC ==
[2021-07-21 07:59] LABS: PROTHROMBIN TIME 20.8 SECONDS (9.0-12.0)
== END ==
LOC: LAB 07:08
PROVIDERS: Internal Medicine
DX: Z01.812 Encounter for preprocedural laboratory examination (principal); I48.91 Unspecified atrial fibrillation; N40.0 Benign prostatic hyperplasia without lower urinary tract symptoms

== ENCOUNTER → 2021-08-19 | Outpatient (CLI) | payer MEDICARE, BC ==
[2021-08-19 11:23] LABS: BASO # 0.04 K/mm3 (0.02-0.10); EOS # 0.34 K/mm3 (0.04-0.40); EOS % 4.7 % (0.0-4.0); HEMATOCRIT 43.7 % (42.0-52.0); HEMOGLOBIN 14.7 g/dL (13.5-18.0); LYMPH# 1.87 K/mm3 (1.50-4.00); MEAN CELL VOLUME 85 fl (78-100); MEAN CORPUSCULAR HEMOGLOBIN 29 pg (27-31); MEAN CORPUSCULAR HGB CONC 34 g/dL (33-37); MEAN PLATELET VOLUME 9.8 fl (7.4-10.4); MONO # 0.88 K/mm3 (0.20-0.80); NEU # 4.04 K/mm3 (1.40-6.50); PLATELET COUNT 227 K/mm3 (130-400); RED BLOOD COUNT 5.16 M/mm3 (4.20-5.60); RED CELL DISTRIBUTION WIDTH 13.4 % (11.5-14.5); WHITE BLOOD COUNT 7.2 K/mm3 (4.8-10.8)
[2021-08-19 11:35] LABS: ALBUMIN 4.2 g/dL (3.4-4.8); POTASSIUM 4.1 mmol/L (3.5-5.1)
[2021-08-19 11:36] LABS: CALCIUM 9.9 mg/dL (8.3-10.5)
[2021-08-19 11:37] LABS: TOTAL PROTEIN 6.9 g/dL (6.2-8.1)
[2021-08-19 11:39] LABS: TOTAL BILIRUBIN 0.5 mg/dL (0.2-1.2)
== END ==
LOC: LAB 11:11
PROVIDERS: Internal Medicine
DX: I48.91 Unspecified atrial fibrillation (principal); K90.9 Intestinal malabsorption, unspecified; E78.2 Mixed hyperlipidemia; E53.8 Deficiency of other specified B group vitamins; I10 Essential (primary) hypertension

== ENCOUNTER → 2021-09-27 | Outpatient (CLI) | payer MEDICARE, BC ==
[2021-09-27 16:12] LABS: PROTHROMBIN TIME 15.9 SECONDS (9.0-12.0)
== END ==
LOC: LAB 15:45
PROVIDERS: Internal Medicine
DX: Z12.5 Encounter for screening for malignant neoplasm of prostate (principal); Z12.11 Encounter for screening for malignant neoplasm of colon; S61.210A Laceration without foreign body of right index finger without damage to nail, initial encounter; I48.91 Unspecified atrial fibrillation; E53.8 Deficiency of other specified B group vitamins; I10 Essential (primary) hypertension; E78.2 Mixed hyperlipidemia; K90.9 Intestinal malabsorption, unspecified; H60.509 Unspecified acute noninfective otitis externa, unspecified ear

== ENCOUNTER → 2021-10-07 | Outpatient (CLI) | payer MEDICARE, BC ==
[2021-10-07 08:37] LABS: PROTHROMBIN TIME 23.5 SECONDS (9.0-12.0)
== END ==
LOC: LAB 07:48
PROVIDERS: Internal Medicine
DX: Z12.5 Encounter for screening for malignant neoplasm of prostate (principal); Z12.11 Encounter for screening for malignant neoplasm of colon; I48.91 Unspecified atrial fibrillation; E53.8 Deficiency of other specified B group vitamins; I10 Essential (primary) hypertension; E78.2 Mixed hyperlipidemia; K90.9 Intestinal malabsorption, unspecified; S61.210A Laceration without foreign body of right index finger without damage to nail, initial encounter; H60.509 Unspecified acute noninfective otitis externa, unspecified ear

== ENCOUNTER → 2021-10-27 | Outpatient (CLI) | payer MEDICARE, BC ==
[2021-10-27 14:05] LABS: PROTHROMBIN TIME 20.6 SECONDS (9.0-12.0)
== END ==
LOC: LAB 13:39
PROVIDERS: Internal Medicine
DX: Z12.5 Encounter for screening for malignant neoplasm of prostate (principal); Z12.11 Encounter for screening for malignant neoplasm of colon; I48.91 Unspecified atrial fibrillation; E53.8 Deficiency of other specified B group vitamins; I10 Essential (primary) hypertension; E78.2 Mixed hyperlipidemia; K90.9 Intestinal malabsorption, unspecified; S61.210A Laceration without foreign body of right index finger without damage to nail, initial encounter; H60.509 Unspecified acute noninfective otitis externa, unspecified ear

== ENCOUNTER → 2021-12-22 | Outpatient (CLI) | payer MEDICARE, BC ==
[2021-12-22 08:23] LABS: PROTHROMBIN TIME 19.1 SECONDS (9.0-12.0)
== END ==
LOC: LAB 07:34
PROVIDERS: Internal Medicine
DX: Z12.5 Encounter for screening for malignant neoplasm of prostate (principal); Z12.11 Encounter for screening for malignant neoplasm of colon; I48.91 Unspecified atrial fibrillation; S61.210A Laceration without foreign body of right index finger without damage to nail, initial encounter; E53.8 Deficiency of other specified B group vitamins; I10 Essential (primary) hypertension; E78.2 Mixed hyperlipidemia; K90.9 Intestinal malabsorption, unspecified; H60.509 Unspecified acute noninfective otitis externa, unspecified ear

== ENCOUNTER → 2022-05-24 | Outpatient (CLI) | payer MEDICARE, BC ==
[2022-05-24 08:56] LABS: PROTHROMBIN TIME 24.2 SECONDS (9.0-12.0)
== END ==
LOC: LAB 07:44
PROVIDERS: Internal Medicine
DX: Z12.5 Encounter for screening for malignant neoplasm of prostate (principal); Z12.11 Encounter for screening for malignant neoplasm of colon; I48.91 Unspecified atrial fibrillation; E53.8 Deficiency of other specified B group vitamins; I10 Essential (primary) hypertension; E78.2 Mixed hyperlipidemia; K90.9 Intestinal malabsorption, unspecified; S61.210A Laceration without foreign body of right index finger without damage to nail, initial encounter; H60.509 Unspecified acute noninfective otitis externa, unspecified ear

== ENCOUNTER → 2022-06-29 | Outpatient (CLI) | payer MEDICARE, BC ==
[2022-06-29 10:03] LABS: PROTHROMBIN TIME 38.8 SECONDS (9.0-12.0)
== END ==
LOC: LAB 07:48
PROVIDERS: Internal Medicine
DX: Z12.5 Encounter for screening for malignant neoplasm of prostate (principal); Z12.11 Encounter for screening for malignant neoplasm of colon; E53.8 Deficiency of other specified B group vitamins; I10 Essential (primary) hypertension; E78.2 Mixed hyperlipidemia; K90.9 Intestinal malabsorption, unspecified; I48.91 Unspecified atrial fibrillation; S61.210A Laceration without foreign body of right index finger without damage to nail, initial encounter; H60.509 Unspecified acute noninfective otitis externa, unspecified ear

== ENCOUNTER → 2022-07-01 | Outpatient (CLI) | payer MEDICARE, BC ==
[2022-07-01 08:22] LABS: PROTHROMBIN TIME 20.8 SECONDS (9.0-12.0)
== END ==
LOC: LAB 07:38
PROVIDERS: Internal Medicine
DX: Z12.5 Encounter for screening for malignant neoplasm of prostate (principal); Z12.11 Encounter for screening for malignant neoplasm of colon; I48.91 Unspecified atrial fibrillation; E53.8 Deficiency of other specified B group vitamins; I10 Essential (primary) hypertension; E78.2 Mixed hyperlipidemia; K90.9 Intestinal malabsorption, unspecified; S61.210A Laceration without foreign body of right index finger without damage to nail, initial encounter; H60.509 Unspecified acute noninfective otitis externa, unspecified ear

== ENCOUNTER → 2023-02-02 | Outpatient (CLI) | payer MEDICARE, BC ==
[2023-02-02 13:53] LABS: PROTHROMBIN TIME 20.4 SECONDS (9.0-12.0)
== END ==
LOC: LAB 12:49
PROVIDERS: Internal Medicine
DX: Z12.5 Encounter for screening for malignant neoplasm of prostate (principal); Z12.11 Encounter for screening for malignant neoplasm of colon; I48.91 Unspecified atrial fibrillation; E53.8 Deficiency of other specified B group vitamins; I10 Essential (primary) hypertension; E78.2 Mixed hyperlipidemia; K90.9 Intestinal malabsorption, unspecified; S61.210A Laceration without foreign body of right index finger without damage to nail, initial encounter; H60.509 Unspecified acute noninfective otitis externa, unspecified ear

== ENCOUNTER → 2023-03-03 | Outpatient (CLI) | payer MEDICARE, BC ==
[2023-03-03 09:03] LABS: BASO # 0.05 K/mm3 (0.02-0.10); EOS # 0.26 K/mm3 (0.04-0.40); EOS % 3.2 % (0.0-4.0); HEMATOCRIT 45.4 % (42.0-52.0); LYMPH# 1.46 K/mm3 (1.50-4.00); MEAN CELL VOLUME 86 fl (78-100); MEAN CORPUSCULAR HEMOGLOBIN 29 pg (27-31); MEAN CORPUSCULAR HGB CONC 33 g/dL (33-37); MEAN PLATELET VOLUME 9.3 fl (7.4-10.4); MONO # 1.07 K/mm3 (0.20-0.80); PLATELET COUNT 204 K/mm3 (130-400); RED BLOOD COUNT 5.27 M/mm3 (4.20-5.60); RED CELL DISTRIBUTION WIDTH 13.2 % (11.5-14.5); WHITE BLOOD COUNT 8.1 K/mm3 (4.8-10.8)
[2023-03-03 09:16] LABS: ALBUMIN 4.1 g/dL (3.4-4.8)
[2023-03-03 09:18] LABS: TOTAL PROTEIN 6.8 g/dL (6.2-8.1)
[2023-03-03 09:20] LABS: TOTAL BILIRUBIN 0.6 mg/dL (0.2-1.2)
[2023-03-03 09:24] LABS: PROTHROMBIN TIME 25.7 SECONDS (9.0-12.0)
[2023-03-03 09:25] LABS: MAGNESIUM 1.67 mg/dL (1.60-2.60)
[2023-03-03 10:31] LABS: ERYTHROCYTE SEDIMENTATION RATE 18 mm/hr (0-20)
== END ==
LOC: LAB 08:47
PROVIDERS: Internal Medicine
DX: I48.91 Unspecified atrial fibrillation (principal); E78.2 Mixed hyperlipidemia; K90.9 Intestinal malabsorption, unspecified; E53.8 Deficiency of other specified B group vitamins; I10 Essential (primary) hypertension; L57.0 Actinic keratosis; M54.6 Pain in thoracic spine; M25.512 Pain in left shoulder

== ENCOUNTER → 2023-03-30 | Outpatient (CLI) | payer MEDICARE, BC ==
[2023-03-30 14:38] LABS: PROTHROMBIN TIME 31.2 SECONDS (9.0-12.0)
== END ==
LOC: LAB 14:12
PROVIDERS: Internal Medicine
DX: I48.91 Unspecified atrial fibrillation (principal); E78.2 Mixed hyperlipidemia; K90.9 Intestinal malabsorption, unspecified; E53.8 Deficiency of other specified B group vitamins; I10 Essential (primary) hypertension; L57.0 Actinic keratosis; M54.6 Pain in thoracic spine; M25.512 Pain in left shoulder

== ENCOUNTER → 2023-05-04 | Outpatient (CLI) | payer MEDICARE, BC ==
[2023-05-04 13:34] LABS: PROTHROMBIN TIME 27.5 SECONDS (9.0-12.0)
== END ==
LOC: LAB 12:49
PROVIDERS: Internal Medicine
DX: I48.91 Unspecified atrial fibrillation (principal); E78.2 Mixed hyperlipidemia; K90.9 Intestinal malabsorption, unspecified; E53.8 Deficiency of other specified B group vitamins; I10 Essential (primary) hypertension; M54.6 Pain in thoracic spine; M25.512 Pain in left shoulder; L57.0 Actinic keratosis

== ENCOUNTER → 2023-05-10 | Outpatient (CLI) | payer MEDICARE, BC ==
[2023-05-10 14:40] LABS: PH-URINE 5.5 (5.0 - 8.0); URINE APPEARANCE CLEAR (CLEAR); URINE BILIRUBIN NEGATIVE (NEGATIVE); URINE BLOOD TRACE-INTACT (NEGATIVE); URINE COLOR YELLOW (YELLOW); URINE GLUCOSE NEGATIVE (NEGATIVE); URINE KETONE NEGATIVE (NEGATIVE); URINE LEUKOCYTE ESTERASE NEGATIVE (NEGATIVE); URINE NITRATE NEGATIVE (NEGATIVE); URINE PROTEIN(semi-quant) NEGATIVE (NEGATIVE); URINE WBC 0-1 /hpf (0-3)
== END ==
LOC: LAB 14:01
PROVIDERS: Internal Medicine
DX: N39.0 Urinary tract infection, site not specified (principal)

== ENCOUNTER → 2023-06-05 | Outpatient (CLI) | payer MEDICARE, BC ==
[2023-06-05 15:48] LABS: PROTHROMBIN TIME 40.4 SECONDS (9.0-12.0)
== END ==
LOC: LAB 14:47
PROVIDERS: Internal Medicine
DX: I48.91 Unspecified atrial fibrillation (principal); E78.2 Mixed hyperlipidemia; K90.9 Intestinal malabsorption, unspecified; E53.8 Deficiency of other specified B group vitamins; I10 Essential (primary) hypertension; L57.0 Actinic keratosis; M54.6 Pain in thoracic spine; M25.512 Pain in left shoulder

== ENCOUNTER → 2023-06-19 | Outpatient (CLI) | payer MEDICARE, BC ==
[2023-06-19 14:36] LABS: PROTHROMBIN TIME 13.4 SECONDS (9.0-12.0)
== END ==
LOC: LAB 14:01
PROVIDERS: Internal Medicine
DX: I48.91 Unspecified atrial fibrillation (principal); E78.2 Mixed hyperlipidemia; K90.9 Intestinal malabsorption, unspecified; E53.8 Deficiency of other specified B group vitamins; I10 Essential (primary) hypertension; L57.0 Actinic keratosis; M54.6 Pain in thoracic spine; M25.512 Pain in left shoulder

== ENCOUNTER → 2023-07-13 | Outpatient (CLI) | payer MEDICARE, BC ==
[2023-07-13 09:12] LABS: PROTHROMBIN TIME 15.7 SECONDS (9.0-12.0)
== END ==
LOC: LAB 08:38
PROVIDERS: Internal Medicine
DX: I48.91 Unspecified atrial fibrillation (principal); E78.2 Mixed hyperlipidemia; K90.9 Intestinal malabsorption, unspecified; E53.8 Deficiency of other specified B group vitamins; I10 Essential (primary) hypertension; L57.0 Actinic keratosis; M54.6 Pain in thoracic spine; M25.512 Pain in left shoulder

== ENCOUNTER → 2023-08-17 | Outpatient (CLI) | payer MEDICARE, BC ==
[2023-10-03 14:40] LABS: PROTHROMBIN TIME 11.1 SECONDS (9.0-12.0)
== END ==
LOC: LAB 08-16 08:00
PROVIDERS: Internal Medicine
DX: I48.91 Unspecified atrial fibrillation (principal); E78.2 Mixed hyperlipidemia; K90.9 Intestinal malabsorption, unspecified; E53.8 Deficiency of other specified B group vitamins; I10 Essential (primary) hypertension; L57.0 Actinic keratosis; M54.6 Pain in thoracic spine; M25.512 Pain in left shoulder

== ENCOUNTER → 2023-09-04 | Outpatient (CLI) | payer MEDICARE, BC ==
[2023-10-23 00:16] LABS: PROTHROMBIN TIME 19.7 SECONDS (9.0-12.0)
== END ==
LOC: LAB 11:28
PROVIDERS: Internal Medicine
DX: I48.91 Unspecified atrial fibrillation (principal); E78.2 Mixed hyperlipidemia; K90.9 Intestinal malabsorption, unspecified; E53.8 Deficiency of other specified B group vitamins; I10 Essential (primary) hypertension; L57.9 Skin changes due to chronic exposure to nonionizing radiation, unspecified; M54.6 Pain in thoracic spine; M25.512 Pain in left shoulder

== ENCOUNTER → 2023-09-12 | Outpatient (CLI) | payer MEDICARE, BC ==
[2023-09-12 09:30] LABS: PROTHROMBIN TIME 18.3 SECONDS (9.0-12.0)
== END ==
LOC: LAB 08:13
PROVIDERS: Internal Medicine
DX: I48.91 Unspecified atrial fibrillation (principal); E78.2 Mixed hyperlipidemia; K90.9 Intestinal malabsorption, unspecified; E53.8 Deficiency of other specified B group vitamins; I10 Essential (primary) hypertension; L57.0 Actinic keratosis; M54.6 Pain in thoracic spine; M25.512 Pain in left shoulder

== ENCOUNTER → 2023-10-10 | Outpatient (CLI) | payer MEDICARE, BC ==
[2023-10-10 15:21] LABS: BASO # 0.04 K/mm3 (0.02-0.10); EOS # 0.27 K/mm3 (0.04-0.40); EOS % 3.6 % (0.0-4.0); HEMATOCRIT 41.9 % (42.0-52.0); HEMOGLOBIN 13.8 g/dL (13.5-18.0); LYMPH# 1.48 K/mm3 (1.50-4.00); MEAN CELL VOLUME 88 fl (78-100); MEAN CORPUSCULAR HEMOGLOBIN 29 pg (27-31); MEAN CORPUSCULAR HGB CONC 33 g/dL (33-37); MEAN PLATELET VOLUME 9.7 fl (7.4-10.4); MONO # 0.97 K/mm3 (0.20-0.80); NEU # 4.66 K/mm3 (1.40-6.50); PLATELET COUNT 231 K/mm3 (130-400); RED BLOOD COUNT 4.79 M/mm3 (4.20-5.60); RED CELL DISTRIBUTION WIDTH 12.7 % (11.5-14.5); WHITE BLOOD COUNT 7.4 K/mm3 (4.8-10.8)
[2023-10-10 15:30] LABS: ALBUMIN 4.1 g/dL (3.4-4.8)
[2023-10-10 15:31] LABS: CALCIUM 9.8 mg/dL (8.3-10.5)
[2023-10-10 15:33] LABS: TOTAL PROTEIN 6.7 g/dL (6.2-8.1)
[2023-10-10 15:34] LABS: TOTAL BILIRUBIN 0.3 mg/dL (0.2-1.2)
[2023-10-10 15:40] LABS: MAGNESIUM 1.86 mg/dL (1.60-2.60)
== END ==
LOC: LAB 15:02
PROVIDERS: Internal Medicine
DX: I10 Essential (primary) hypertension (principal); I48.91 Unspecified atrial fibrillation; R59.0 Localized enlarged lymph nodes; E78.2 Mixed hyperlipidemia; K90.9 Intestinal malabsorption, unspecified; R73.03 Prediabetes

== ENCOUNTER → 2023-10-11 | Outpatient (CLI) | payer MEDICARE, BC ==
[~2023-10-11] MED LIST changes: +Iohexol 300 - 100 ML VIAL IV ONE
== END ==
LOC: RAD 08:10
DX: R59.0 Localized enlarged lymph nodes (principal)
CPT/HCPCS: Q9967

== ENCOUNTER → 2023-10-24 | Outpatient (CLI) | payer MEDICARE, BC ==
[~2023-10-24] MED LIST changes: -Iohexol 300 - 100 ML VIAL IV ONE
[2023-10-24 10:02] LABS: PROTHROMBIN TIME 18.2 SECONDS (9.0-12.0)
== END ==
LOC: LAB 09:15
PROVIDERS: Internal Medicine
DX: I48.91 Unspecified atrial fibrillation (principal)

== ENCOUNTER → 2023-12-11 | Outpatient (CLI) | payer MEDICARE, BC | LOC: LAB 11:31 | PROVIDERS: Internal Medicine | DX: I48.91 Unspecified atrial fibrillation (principal) ==

== ENCOUNTER → 2023-12-15 | Outpatient (CLI) | payer MEDICARE, BC | LOC: RAD 08:22 | DX: R59.0 Localized enlarged lymph nodes (principal) ==

== ENCOUNTER → 2024-01-09 | Outpatient (CLI) | payer MEDICARE, BC ==
[2024-01-09 09:43] LABS: PROTHROMBIN TIME 22.7 SECONDS (9.0-12.0)
== END ==
LOC: LAB 08:59
PROVIDERS: Internal Medicine
DX: I48.91 Unspecified atrial fibrillation (principal)

== ENCOUNTER → 2024-03-12 | Outpatient (CLI) | payer MEDICARE, BC ==
[2024-03-12 10:18] LABS: URINE WBC 0 /hpf (0-3)
[2024-03-12 10:30] LABS: BASO # 0.04 K/mm3 (0.02-0.10); EOS # 0.39 K/mm3 (0.04-0.40); EOS % 5.4 % (0.0-4.0); HEMATOCRIT 40.4 % (42.0-52.0); HEMOGLOBIN 14.2 g/dL (13.5-18.0); LYMPH# 1.54 K/mm3 (1.50-4.00); MEAN CELL VOLUME 86 fl (78-100); MEAN CORPUSCULAR HEMOGLOBIN 30 pg (27-31); MEAN CORPUSCULAR HGB CONC 35 g/dL (33-37); MEAN PLATELET VOLUME 9.1 fl (7.4-10.4); MONO # 0.88 K/mm3 (0.20-0.80); NEU # 4.34 K/mm3 (1.40-6.50); PLATELET COUNT 177 K/mm3 (130-400); RED CELL DISTRIBUTION WIDTH 13.8 % (11.5-14.5); WHITE BLOOD COUNT 7.2 K/mm3 (4.8-10.8)
[2024-03-12 10:40] LABS: URINE APPEARANCE CLEAR (CLEAR); URINE COLOR YELLOW (YELLOW)
[2024-03-12 10:41] LABS: ALBUMIN 4.1 g/dL (3.4-4.8); PH-URINE 6.5 (5.0 - 8.0); URINE BILIRUBIN NEGATIVE (NEGATIVE); URINE BLOOD NEGATIVE (NEGATIVE); URINE GLUCOSE NEGATIVE (NEGATIVE); URINE KETONE NEGATIVE (NEGATIVE); URINE LEUKOCYTE ESTERASE NEGATIVE (NEGATIVE); URINE NITRATE NEGATIVE (NEGATIVE); URINE PROTEIN(semi-quant) NEGATIVE (NEGATIVE)
[2024-03-12 10:42] LABS: CALCIUM 10.1 mg/dL (8.3-10.5)
[2024-03-12 10:44] LABS: TOTAL PROTEIN 6.7 g/dL (6.2-8.1)
[2024-03-12 10:45] LABS: TOTAL BILIRUBIN 0.5 mg/dL (0.2-1.2)
[2024-03-12 10:50] LABS: MAGNESIUM 1.76 mg/dL (1.60-2.60)
[2024-03-12 10:52] LABS: PROTHROMBIN TIME 18.7 SECONDS (9.0-12.0)
[2024-03-12 23:19] LABS: CREATININE OTHER SOURCE 50 mg/dL (47-110)
== END ==
LOC: LAB 10:12
PROVIDERS: Internal Medicine
DX: Z12.5 Encounter for screening for malignant neoplasm of prostate (principal); Z12.11 Encounter for screening for malignant neoplasm of colon; I48.91 Unspecified atrial fibrillation; I10 Essential (primary) hypertension; K90.9 Intestinal malabsorption, unspecified; E78.2 Mixed hyperlipidemia; R73.03 Prediabetes

== ENCOUNTER → 2024-03-25 | Outpatient (CLI) | payer MEDICARE, BC ==
[2024-03-25 08:45] LABS: PROTHROMBIN TIME 23.7 SECONDS (9.0-12.0)
== END ==
LOC: LAB 08:21
PROVIDERS: Internal Medicine
DX: Z12.11 Encounter for screening for malignant neoplasm of colon (principal); I48.91 Unspecified atrial fibrillation

== ENCOUNTER → 2024-04-19 | Outpatient (CLI) | payer MEDICARE, BC ==
[2024-04-19 14:17] LABS: PROTHROMBIN TIME 29.5 SECONDS (9.0-12.0)
== END ==
LOC: LAB 13:45
PROVIDERS: Internal Medicine
DX: I48.91 Unspecified atrial fibrillation (principal)

== ENCOUNTER → 2024-05-20 | Outpatient (CLI) | payer MEDICARE, BC ==
[2024-05-20 09:31] LABS: PROTHROMBIN TIME 33.6 SECONDS (9.0-12.0)
== END ==
LOC: LAB 09:00
PROVIDERS: Internal Medicine
DX: I48.91 Unspecified atrial fibrillation (principal)

== ENCOUNTER → 2024-06-17 | Outpatient (CLI) | payer MEDICARE, BC ==
[2024-06-17 08:52] LABS: PROTHROMBIN TIME 24.6 SECONDS (9.0-12.0)
== END ==
LOC: LAB 08:03
PROVIDERS: Internal Medicine
DX: I48.91 Unspecified atrial fibrillation (principal)

== ENCOUNTER → 2024-07-18 | Outpatient (CLI) | payer MEDICARE, BC ==
[2024-07-18 08:42] LABS: PROTHROMBIN TIME 23.9 SECONDS (9.0-12.0)
== END ==
LOC: LAB 08:09
PROVIDERS: Internal Medicine
DX: I48.91 Unspecified atrial fibrillation (principal)